=== PATIENT | male | born 1960 | race Asian ===

== ENCOUNTER 2016-09-06 00:24 | Emergency (ER) | payer OTHER ==
[~2016-09-06] VITALS: Ht 167.6 cm; Wt 85.0 kg
[2016-09-06] MEDS ORDERED: NITROGLYCERIN 2% 1 GM OINT PKT TD STA (00:27)
[2016-09-06] MEDS ORDERED: ASPIRIN 325 MG TAB PO STA (00:27)
[2016-09-06 00:28] VITALS: Ht 167.6 cm; Wt 85.0 kg
[2016-09-06 00:51] LABS: ALBUMIN 4.5 g/dl (3.3-4.9); CHLORIDE 104 mmol/L (97-110); POTASSIUM 3.7 mmol/L (3.5-5.1); SODIUM 144 mmol/L (135-144)
[2016-09-06 00:53] LABS: ANION GAP 20 (8-16); BILIRUBIN,INDIRECT 0.5 mg/dl (0-1.1); BILIRUBIN,TOTAL 0.5 mg/dl (0.2-1.3); CARBON DIOXIDE 24 mmol/L (21-31); CREATININE 1.09 mg/dl (0.61-1.24)
[2016-09-06 00:54] LABS: ALANINE AMINOTRANSFERASE 44 IU/L (13-69); ALBUMIN/GLOBULIN RATIO 1.12; ALKALINE PHOSPHATASE 63 IU/L (42-121); ASPARTATE AMINO TRANSFERASE 30 IU/L (15-46); BLOOD UREA NITROGEN 15 mg/dl (7-20); CALCIUM 9.4 mg/dl (8.4-10.2); GLUCOSE 94 mg/dl (70-220); TOTAL PROTEIN 8.5 g/dl (6.1-8.1)
[2016-09-06 00:59] LABS: HEMATOCRIT 46.1 % (42.0-52.0); HEMOGLOBIN 15.8 g/dl (14.0-18.0); MEAN CORPUSCULAR HEMOGLOBIN 32.1 pg (29.0-33.0); MEAN CORPUSCULAR HGB CONC 34.1 g/dl (32.0-37.0); MEAN CORPUSCULAR VOLUME 94.1 fl (82.0-101.0); MEAN PLATELET VOLUME 7.8 fl (7.4-10.4); PLATELET COUNT 291 10^3/UL (140-440); RED CELL DISTRIBUTION WIDTH 12.8 % (11.5-14.5); UNCORRECTED WBC 10.4 10^3/ul (4.8-10.8); WHITE BLOOD COUNT 10.4 10^3/ul (4.8-10.8)
[2016-09-06 01:03] LABS: B-TYPE NATRIURETIC PEPTIDE 17 PG/ML (0-125)
--- NOTE | 2016-09-06 01:05 | RADRPT ---
PROCEDURE: XR Chest. CLINICAL INDICATION: Chest pain. TECHNIQUE: Single frontal view of the chest was obtained COMPARISON: None FINDINGS: Cardiomegaly and atherosclerotic calcifications in the thoracic aorta. Mild bibasilar atelectasis v ersus airspace disease, left greater than right. There is no pleural effusion or pneumothorax. IMPRESSION: 1. Cardiomegaly and atherosclerotic calcifications in the thoracic aorta. 2. Mild bibasilar atelectasis versus airspace disease, left greater than right. RPTAT: [facility] Physician Melissa Date Time Electronically viewed and signed by Physician Melissa on 09/06/2016 01:05 RS/
[2016-09-06 01:06] LABS: CONDITION 1; LH ANALYZER COMMENTS 1
[2016-09-06 01:16] LABS: INR 0.88; PARTIAL THROMBOPLASTIN TIME 28.7 Sec (25.0-35.0); PROTIME 11.9 Sec (12.2-14.2); PT RATIO 0.9
[2016-09-06 01:41] LABS: TROPONIN-I < 0.010 ng/ml (0.00-0.12)
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
[2016-09-06 02:15] LABS: LYMPHOCYTES # 6.3 10^3/ul (0.8-2.9); MONOCYTE # 0.7 10^3/ul (0.3-0.9); NEUTROPHIL # 3.2 10^3/ul (1.6-7.5)
[2016-09-06] MEDS ORDERED: morphine 4 MG/ML VIAL IV STA (02:37)
[2016-09-06] MEDS ORDERED: ONDANSETRON 4 MG INJ IV STA (02:37)
[2016-09-06] MEDS ORDERED: ACETAMINOPHEN 500 MG TAB PO STA (02:55)
[2016-09-06 03:04] VITALS: BP 125/70; PULSE 65; RESP 16; TEMP 98.9
== END 2016-09-06 03:09 | disposition left against medical advice (07) ==
LOC: E/R 00:24
DX: I20.9 Angina pectoris, unspecified (principal); F17.210 Nicotine dependence, cigarettes, uncomplicated; R40.2142 Coma scale, eyes open, spontaneous, at arrival to emergency department; R40.2252 Coma scale, best verbal response, oriented, at arrival to emergency department; R40.2362 Coma scale, best motor response, obeys commands, at arrival to emergency department
CPT/HCPCS: 36415; 71010; 80053; 83880; 84484; 85025; 85610; 85730; 93005